=== PATIENT | female | born 1970 | race Caucasian/White ===

== ENCOUNTER 2018-01-23 21:23 | Emergency (ER) | payer OTHER, MEDICARE ==
[~2018-01-23] VITALS: Ht 154.9 cm; Wt 88.5 kg
[~2018-01-23 21:23] MED LIST: ALPRAZOLAM2 MG PO; ATORVASTATIN CA40 MG PO; BONTRIL PO; EFFEXOR XR150 MG PO; LEVSIN/SL0.125 MG SL; LISINOPRIL2.5 MG PO; LOPRESSOR 25MG25 MG PO; OXYCODONE HCL30 MG PO; OXYCONTIN40 MG PO; OXYCONTIN80 MG PO; PEPCID20 MG PO; ROXICODONE30 MG PO
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
[2018-01-23 22:03] VITALS: BP 108/72
== END 2018-01-23 22:10 ==
LOC: ERH 21:23
DX: S13.4XXA Sprain of ligaments of cervical spine, initial encounter (principal); V49.40XA Driver injured in collision with unspecified motor vehicles in traffic accident, initial encounter; Y92.9 Unspecified place or not applicable

== ENCOUNTER 2018-06-07 13:05 | Emergency (ER) | payer OTHER, MEDICARE ==
[~2018-06-07 13:05] MED LIST changes: +ADDERALL 30 MG30 MG PO; +ALPRAZOLAM2 M2 PO; -ALPRAZOLAM2 MG PO; -ATORVASTATIN CA40 MG PO; +EFFEXOR XR150 M1 PO; -EFFEXOR XR150 MG PO; +LIPITOR40 M1 PO; +LISINOPRIL2.5 M1 PO; -LISINOPRIL2.5 MG PO; -LOPRESSOR 25MG25 MG PO; +METOPROLOL TART25 M1 PO; +OXYCONTIN80 M1 PO; +XANAX0.25 M1 PO
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
[2018-06-07] MEDS ORDERED: OXYCODONE HCL15 M1 PO (14:40)
[2018-06-07 14:52] LABS: ABSOLUTE BASOPHIL COUNT 0 /CUMM (0.0-0.2); ABSOLUTE EOSINOPHIL COUNT 0 /CUMM (0.0-0.7); ABSOLUTE GRANULOCYTE CT 2.9 /CUMM (1.4-6.5); ABSOLUTE LYMPH COUNT 1.6 /CUMM (1.2-3.4); ABSOLUTE MONOCYTE COUNT 0.6 /CUMM (0.10-0.60); BASOPHIL % 0.2 % (0.0-2.0); EOSINOPHIL % 0.1 % (0-5); GRANULOCYTE % 56.6 % (42.2-75.2); HEMATOCRIT 39.2 % (37-47); MEAN CORPUSCULAR HGB 29.9 PG (27.0-31.0); MEAN CORPUSCULAR HGB CONC 34.2 G/DL (33.0-37.0); MEAN CORPUSCULAR VOLUME 87.5 FL (81.0-99.0); MEAN PLATELET VOLUME 9.4 FL (7.4-10.4); PLATELET COUNT 187 /CUMM (130-400); RBC DISTRIBUTION WIDTH 12.6 % (11.5-14.5); RED BLOOD CELL CT 4.48 /CUMM (4.20-5.40)
--- NOTE | 2018-06-07 15:03 | ED PSY CRISIS COLLATERAL NOTE ---
Collateral Note Collateral Note Family/Inform/Evangelina Contacts: Crisis recieved call from Rosa Mariaann Guzmannon ([phone])- pt's daughter, prior to patient's arrival. Pt is presently psychotic: referring to the phone as "me", states "me" is taking over the phone (has gotten 12 different phones over the last year), talking to the remote control, and believes she is in a relationship with Bhavin Santos ( musician). Daughter states pt's last hospitalization was in February 2018 for psychosis. Daughter is unsure if she was prescribed any psychiatric medications. Daughter states she has been obssessed with trying to get Adderral and searches all over for Adderrall. She believes pt is taking too much of this medication. Per pt record, NILSA Bruce provided Adderrall 30 mg #6 last week as pt had ED visit for a medication refill. Pt stated yesterday, "I'm not now but I will be when I kill myself". Daughter believes pt needs to be inpatient as she is manic and psychotic. She specifically states pt should not be admitted to [facility] as daughter, Rosa Maria, works in ED and CPS. Of note, pt's other daughter is PA, Ciarra Greer who also works in [facility].
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
[2018-06-08 14:52] VITALS: BP 111/81
== END 2018-06-08 18:00 | disposition short-term general hospital (02) ==
LOC: ERH 13:05
PROVIDERS: Physician Assistant
DX: R45.851 Suicidal ideations (principal)
CPT/HCPCS: 80324; 80307; G0463; G0480